=== PATIENT | male | born 1965 | race Caucasian/White ===

== ENCOUNTER 2023-05-03 08:26 | Outpatient (OUT) | payer OTHER, SELFPAY ==
--- NOTE | 2023-05-03 08:40 | ECG_ITS ---
[facility] Test Date: 2023-05-03 Pat Name: JAISON PENA Department: Room: - Gender: Male [employer]: : 1965 Requested By: [id number] Order Number: [id number] Reading MD: RANGEL BANERJEE Measurements Intervals [place] Rate: 75 P: 38 DE: 121 QRS: 2 QRSD: 100 T: 17 QT: 369 QTc: 414 Interpretive Statements SINUS RHYTHM WARNING: DATA QUALITY MAY AFFECT INTERPRETATION No previous ECG available for comparison Electronically Signed On 05-04-2023 7:01:18 EDT by RANGEL BANERJEE
[2023-05-03 09:36] LABS: Basophils Absolute Auto 0.1 10^3/uL (0.0-0.1); Basophils Percent Auto 0.8 % (0.2-2.0); Eosinophils Absolute Auto 0.3 10^3/uL (0.0-0.7); Eosinophils Percent Auto 3.6 % (0.9-7.0); Hematocrit 43.8 % (42.0-54.0); Hemoglobin 14.1 g/dL (14.0-18.0); Immature Granulocytes Abs Auto 0.02 10^3/uL (0.00-0.03); Immature Granulocytes Pct Auto 0.2 % (0.0-0.5); Mean Corpuscular HGB Conc 32.2 g/dL (29.9-35.2); Mean Corpuscular Hemoglobin 30.3 pg (25.9-34.0); Monocytes Absolute Auto 0.9 10^3/uL (0.3-0.8); Neutrophils Absolute Auto 4.4 10^3/uL (1.4-6.5); Neutrophils Percent Auto 50.4 % (43.0-75.0); Platelet Count 236 10^3/uL (150-450); Red Blood Count 4.66 10^6/uL (4.70-6.10); Red Cell Distribution Width 13.7 % (11.0-15.0); White Blood Count 8.6 10^3/uL (4.0-11.0)
--- NOTE | 2023-05-03 09:40 | P.GSHP_ITS ---
History of Present Illness History of Present Illness Chief complaint: elevated PSA Narrative: Patient presents for preadmission testing accompanied by his . The patient reports urgency with urination and incomplete bladder emptying. He denies dysuria or hematuria, abdominal pain, nausea, vomiting, fever, or any othher complaints. Review of Systems ROS Narrative REVIEW OF SYSTEMS: Negative except as stated in HPI, ten or more systems reviewed. Constitutional: No fever , chills, weakness ENT: No sore throat or epistaxis Cardiovascular: No edema, chest pain, palpitations, or activity intolerance Respiratory: No shortness of breath, cough, or wheezing Musculoskeletal: No joint pain or swelling Gastrointestinal: No abdominal pain, constipation, diarrhea, or vomiting Genitourinary: No dysuria or hematuria Neurological: No numbness, tingling, weakness, or headache Psychiatric: No mood changes PFSH PFS Medical History (Updated 05/03/23 @ 09:24 by Brooke Mcdaniel NP) Arthritis ?M19.90 - Unspecified osteoarthritis, unspecified site (ICD-10) Benign prostatic hyperplasia with urinary obstruction ?N40.1 - Benign prostatic hyperplasia with lower urinary tract symptoms (ICD- 10) ?N13.8 - Other obstructive and reflux uropathy (ICD-10) BPH (benign prostatic hyperplasia) ?N40.0 - Benign prostatic hyperplasia without lower urinary tract symptoms (ICD-10) COVID-19 ?U07.1 - COVID-19 (ICD-10) Diabetes ?E11.9 - Type 2 diabetes mellitus without complications (ICD-10) Elevated PSA ?R97.20 - Elevated prostate specific antigen [PSA] (ICD-10) Heartburn ?R12 - Heartburn (ICD-10) Irregular heart beat ?I49.9 - Cardiac arrhythmia, unspecified (ICD-10) Surgical History (Updated 05/03/23 @ 09:13 by Brooke Mcdaniel NP) History of arthroplasty of knee ?Z96.659 - Presence of unspecified artificial knee joint (ICD-10) History of arthroplasty of knee ?Z96.659 - Presence of unspecified artificial knee joint (ICD-10) History of arthroscopy of knee ?Z98.890 - Other specified postprocedural states (ICD-10) History of arthroscopy of knee ?Z98.890 - Other specified postprocedural states (ICD-10) History of arthroscopy of shoulder ?Z98.890 - Other specified postprocedural states (ICD-10) History of colonoscopy ?Z98.890 - Other specified postprocedural states (ICD-10) History of hernia repair ?Z98.890 - Other specified postprocedural states (ICD-10) ?Z87.19 - Personal history of other diseases of the digestive system (ICD-10) History of tonsillectomy ?Z90.89 - Acquired absence of other organs (ICD-10) Family History (Updated 05/03/23 @ 09:13 by Brooke Mcdaniel NP) Other Family history of colon cancer Family history of diabetes mellitus Family history of heart disease Family history of hypertension Family history of myocardial infarction Family history of pancreatic cancer Family history of prostate cancer Family history of stroke Social History (Updated 05/03/23 @ 09:08 by Brooke Mcdaniel NP) Within the past year, how often did you have a drink containing alcohol: 4 or more times a week Smoking status: Never smoker Non-prescribed substance use: denies use 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 Highest level of school completed/degree received: Associate degree: occupational, technical, vocational program Meds Home Medications and Allergies Home Medications Medication Instructions Recorded Confirmed Type Colon Health probiotic 05/03/23 History Golo Release 05/03/23 History ascorbic acid (vitamin C) 500 mg 1.5 g PO DAILY 05/03/23 05/03/23 History tablet (Vitamin C With Brittani Hips) aspirin 81 mg tablet,delayed 81 mg PO DAILY 05/03/23 05/03/23 History release (Adult Aspirin Regimen) calcium carbonate 600 mg-vitamin 1 tab PO BID 05/03/23 05/03/23 History D3 5 mcg (200 unit) tablet (Calcium 600 + D(3)) cholecalciferol (vitamin D3) 25 25 mcg PO BID 05/03/23 05/03/23 History mcg (1,000 unit) capsule folic acid 400 mcg tablet 400 mcg PO BID 05/03/23 05/03/23 History magnesium 250 mg tablet 250 mg PO DAILY 05/03/23 05/03/23 History metformin 850 mg tablet 850 mg PO BID 05/03/23 05/03/23 History naproxen sodium 220 mg capsule 220 mg PO Q12H 05/03/23 05/03/23 History (Aleve) potassium supplement 50mg PO 05/03/23 History saw palmetto 160 mg capsule 160 mg PO BID 05/03/23 05/03/23 History vitamin B complex 1 cap PO DAILY 05/03/23 05/03/23 History vitamin B complex (B 1 tab PO DAILY 05/03/23 05/03/23 History Complex-Vitamin B12 tablet) vitamin E 100 unit capsule 450 mg PO DAILY 05/03/23 05/03/23 History Allergies Allergy/AdvReac Type Severity Reaction Status Date / Time hornet venom Allergy unknown Verified 05/03/23 09:06 house dust Allergy Verified 05/03/23 09:06 steri-strip Allergy blisters Uncoded 05/03/23 09:06 Exam Narrative Exam Narrative: Constitutional: Awake, alert, comfortable, well-appearing, nontoxic, interactive, vital signs as charted Head: Normocephalic, atraumatic Neck: Supple, normal appearance, normal range of motion, no meningeal signs, no lymphadenopathy Respiratory: No respiratory distress, breath sounds clear Cardiovascular: Regular rate and rhythm, strong and regular heart tones Abdomen: Nontender, normal bowel sounds, soft, no CVA tenderness Musculoskeletal: Normal gait, no swelling or edema Skin: No rashes or induration, no lesions, only visible skin inspected Neuro: No neurological deficits, normal sensation Psychiatric: Oriented ?3, normal affect Assessment and Plan Assessment and Plan (1) Benign prostatic hyperplasia with urinary obstruction: (2) BPH (benign prostatic hyperplasia): (3) Elevated PSA: Plan Transperineal prostate biopsy scheduled with Dr. Alejandro 05/16/2023.
[2023-05-03 10:30] LABS: Anion Gap 9.9; BUN Creatinine Ratio 25.4; Chloride 106 mmol/L (98-107); Estimated GFR (African America >60 (>=60); Estimated GFR (Non-African Ame >60 (>=60); Glucose 134 mg/dL (74-106); Potassium 4.9 mmol/L (3.5-5.1); Sodium 141 mmol/L (136-145)
== END 2023-05-03 08:27 | disposition home or self-care (01) ==
LOC: PST 08:30
PROVIDERS: Visit Provider Urology
DX: Z01.812 Encounter for preprocedural laboratory examination (principal); Z01.810 Encounter for preprocedural cardiovascular examination; R97.20 Elevated prostate specific antigen [PSA]
CPT/HCPCS: 80048; 85025; 93005; G0463

== ENCOUNTER 2023-05-16 13:13 | Day surgery (SDC) | payer OTHER, SELFPAY ==
[2023-05-03 09:24] VITALS: BP 121/78; PULSE 75; RESP 20; TEMP 36.3; O2SAT 97; BMI 44.1
[2023-05-16] VITALS (9 sets, daily range): BP systolic 127–160; BP diastolic 63–96; PULSE 75–103; RESP 13–16; TEMP 36.4–36.6; O2SAT 92–96
[2023-05-16 13:50] LABS: Glucometer 122 mg/dL (74-106)
[2023-05-16] MEDS: LACTATED RINGER'S SOLUTION 1,000 ML 50 ML IV (13:58)
[2023-05-16] MEDS: CEFAZOLIN SODIUM/DEXTROSE,ISO 2 GM/50 ML PIGGYBACK IV (14:54)
--- NOTE | 2023-05-16 15:05 | PM.URSON ---
Urology Surgery Operative Note Operative Note Procedure Date: 05/16/23 Time Out Performed: yes Pre-op Diagnosis: 1. Elevated PSA Post-op Diagnosis: same as pre-op Procedures performed: 1. Needle prostate biopsy, transperineal approach 2. Ultrasound for needle prostate biopsy, transperineal approach 3. Transrectal ultrasound of prostate and seminal vesicles 4. Nerve block of prostate Anesthesia: General-LMA (Dr. Sharp) Primary Surgeon: Eula Alejandro Complications: none Estimated blood loss (mL): 1 Findings: Scattered prostate calcifications in transition zone. Small septated cysts in mid peripheral zone. No discrete hypoechoic lesions. JUVENCIO right mid mild firmness, higher than left. Uneventful biopsy per below. Prostate volume 50.1 cm^3 (4.1 x 5.1 x 4.6 cm) Specimens: 1. Right posterior medial (2 cores) 2. Right posterior lateral (2 cores) 3. Right base (2 cores) 4. Right anterior lateral (2 cores) 5. Right anterior medial (2 cores) 6. Left anterior medial (2 cores) 7. Left anterior lateral (2 cores) 8. Left base (2 cores) 9. Left posterior lateral (2 cores) 10. Left posterior medial (2 cores) Indications for Procedures: 58 year old male with family history of prostate cancer and elevated PSA 3.2, 26% free on 03/12/23, PSA density 0.08. MP-MRI prostate 04/23/23 negative. Prostate volume 40 ml. JUVENCIO right firmness compared to left. [facility] MD[facility] notes risks 41% cancer, 15% [place] 7 or higher. After discussion of risks/benefits of management options and biopsy approaches, he elected to proceed with transperineal prostate biopsy. Risks were discussed to include but not limited to bleeding, pain, infection, damage to surrounding structures, hematuria, difficulty urinating, ecchymosis, swelling, injury from positioning, and need for additional procedures. Detailed description of Procedure: After informed consent was obtained, the patient was brought to the operating suite and transferred onto the operating table in supine position. Sequential compression devices were placed on bilateral lower extremities. He received the appropriate dose of preoperative IV antibiotics (Cefazolin 2 g) and General anesthesia LMA was induced. He was positioned in the dorsal lithotomy position with scrotum secured out of the perineum with tape, and the appropriate pressure points padded, prepped and draped in the usual fashion for this procedure. An operative timeout was performed confirming the patient's identity, procedure and safety checks. A digital rectal exam was performed noting mildly enlarged prostate, mild right mid gland firmness, higher than left. A well lubricated biplane transrectal ultrasound probe was inserted into the rectum and the prostate was aligned. The gland was visualized fully in axial and sagittal views to allow for identification of anatomy, volume and location of the urethra as noted in findings. The skin followed by periprostatic local anesthetic lidocaine 1% was delivered. The Precision Point device was placed on the ultrasound probe for transperineal approach. Two biopsies were obtained in a systematic fashion from 10 regions of the prostate including the medial and lateral aspects of the anterior and posterior prostate, as well as base of the right and left lobes. The ultrasound probe was removed and the perineum was cleaned and dressed with antibiotic ointment, fluffs and scrotal support. The patient was awakened from anesthesia and sent to PACU in stable condition. Plan: Void prior to discharge home. Follow up in 1-2 weeks for pathology review as scheduled Other Provider present: No Post Operative care instructions: see discharge instructions Attending Doc Confirm Attending Attestation: Yes
[2023-05-16] MEDS: LIDOCAINE HCL 1% 100 MG/10 ML MDV INJ (15:24)
[2023-05-16] MEDS: BACITRACIN OINTMENT 28.4 GM TUBE 1 APPLIC TOPICAL (15:28)
== END 2023-05-16 16:41 | disposition home or self-care (01) ==
PROVIDERS: Visit Provider Urology
PROC: (CPT 55700; principal; 2023-05-16 14:45)
DX: R97.20 Elevated prostate specific antigen [PSA] (principal); E11.9 Type 2 diabetes mellitus without complications; M19.90 Unspecified osteoarthritis, unspecified site; N40.1 Benign prostatic hyperplasia with lower urinary tract symptoms; N13.8 Other obstructive and reflux uropathy; Z86.16 Personal history of COVID-19; I49.9 Cardiac arrhythmia, unspecified; R12 Heartburn; Z90.89 Acquired absence of other organs; Z80.0 Family history of malignant neoplasm of digestive organs; Z79.82 Long term (current) use of aspirin; Z79.899 Other long term (current) drug therapy; Z80.42 Family history of malignant neoplasm of prostate; N41.9 Inflammatory disease of prostate, unspecified; R39.15 Urgency of urination; Z96.653 Presence of artificial knee joint, bilateral; Z79.84 Long term (current) use of oral hypoglycemic drugs
CPT/HCPCS: 55700; 36415; 82948; 88305; 88344; J2704